=== PATIENT | male | born 2000 ===

== ENCOUNTER 2023-10-07 09:04 | Outpatient (REF) | payer MEDICAID, SELFPAY | END 2023-10-07 09:05 | disposition home or self-care (01) | LOC: HO.SH 09:04 | PROVIDERS: Visit Provider Student in an Organized Health Care Education/Training Program | DX: Z01.118 Encounter for examination of ears and hearing with other abnormal findings (principal); H93.293 Other abnormal auditory perceptions, bilateral | CPT/HCPCS: 92552; 92556; 92567; 92588; 92700 ==